=== PATIENT | male | born 1960 | race Hispanic/Latino ===

== ENCOUNTER 2019-12-22 14:30 | Emergency (ER) | payer SELFPAY ==
[2019-12-22 14:51] VITALS: BP 143/78
--- NOTE | 2019-12-22 15:04 | Emergency Department Report ---
ED Lower Extremity HPI - General Chief Complaint: Extremity Injury, Lower Stated Complaint: TOE INJURY Time Seen by Provider: 12/22/19 15:02 Source: patient Mode of arrival: Ambulatory Limitations: No Limitations - History of Present Illness Initial Comments: Patient is a 59-year-old male who comes to the ER after stubbing his toe on the nightstand. He states that it hurts so bad that he cannot walk. He has done nothing prior to arrival for the pain. He comes to the ER via private vehicle. He has no other injuries. -: Sudden Place: home Severity: mild Worsens With: weight bearing Context: direct blow - Related Data Allergies Allergy/AdvReac Type Severity Reaction Status Date / Time No Known Allergies Allergy Unverified 12/22/19 14:46 ED Review of Systems ROS: Stated complaint: TOE INJURY Other details as noted in HPI Comment: All other systems reviewed and negative ED Past Medical Hx - Past Medical History Previous Medical History?: No - Surgical History Past Surgical History?: Yes Additional Surgical History: neck surgery x 2. bilateral knee surgery - Social History Smoking Status: Never Smoker Substance Use Type: None ED Physical Exam - General Limitations: No Limitations General appearance: alert, in no apparent distress - Head Head exam: Present: atraumatic, normocephalic - Eye Eye exam: Present: normal appearance - ENT ENT exam: Present: mucous membranes moist - Neck Neck exam: Present: normal inspection - Respiratory Respiratory exam: Present: normal lung sounds bilaterally. Absent: respiratory distress - Cardiovascular Cardiovascular Exam: Present: regular rate, normal rhythm. Absent: systolic murmur, diastolic murmur, rubs, gallop - GI/Abdominal GI/Abdominal exam: Present: soft, normal bowel sounds - Rectal Rectal exam: Present: deferred - Extremities Exam Extremities exam: Present: normal inspection - Back Exam Back exam: Present: normal inspection - Neurological Exam Neurological exam: Present: alert, oriented X3 - Psychiatric Psychiatric exam: Present: normal affect, normal mood - Skin Skin exam: Present: warm, dry, intact, normal color. Absent: rash ED Course Vital Signs 12/22/19 14:46 Temperature 98.1 F Pulse Rate 61 Respiratory 16 Rate Blood Pressure 143/78 O2 Sat by Pulse 99 Oximetry ED Lower Extremity MDM - Radiology Data Radiology results: report reviewed, image reviewed interpreted by me: No fracture Negative for acute process - Medical Decision Making X-ray noted to be negative. Discussed with patient his x-ray. He came to the ER with crutches. I told him he could use these for short time for his pain. However, he should not use those for prolonged period of time so to cause secondary injury. Patient is neurovascularly intact. Patient being discharged home with Ortho/PCP follow-up. Vital Signs 12/22/19 14:46 Temperature 98.1 F Pulse Rate 61 Respiratory 16 Rate Blood Pressure 143/78 O2 Sat by Pulse 99 Oximetry - Differential Diagnosis Rule out fracture Critical care attestation.: If time is entered above; I have spent that time in minutes in the direct care of this critically ill patient, excluding procedure time. ED Disposition Clinical Impression: Foot pain, Bunion, Contusion, foot Disposition: DC-01 TO HOME OR SELFCARE Is pt being admited?: No Does the pt Need Aspirin: No Condition: Stable Instructions: Foot Contusion (ED) Additional Instructions: ICE REST ELEVATE CRUTCHES ONLY FOR COMFORT OVERUSE WILL CAUSE INJURY FOLLOW UP WITH DR LI IF PERSISTS REFERRAL BELOW MOTRIN OR TYLENOL FOR PAIN Referrals: VAN LI MD [Staff Physician] - 3-5 Days Time of Disposition: 15:40
--- NOTE | 2019-12-22 15:32 | XRay Report ---
Left foot 3 views INDICATION: Left foot pain following injury IMPRESSION: No fracture or subluxation of the left foot is identified. Small bunion identified along the medial aspect of the great toe metatarsal head. Signer Name: Andrew Cuellar MD Signed: 12/22/2019 3:27 PM Workstation Name: [id number]
[2019-12-22] MEDS ORDERED: IBUPROFEN 800 MG TAB PO ONE (15:41)
== END 2019-12-22 15:58 | disposition home or self-care (01) ==
LOC: ED 14:30
DX: S90.32XA Contusion of left foot, initial encounter (principal); M21.612 Bunion of left foot; Z98.890 Other specified postprocedural states; W18.49XA Other slipping, tripping and stumbling without falling, initial encounter; Y93.89 Activity, other specified; Y92.009 Unspecified place in unspecified non-institutional (private) residence as the place of occurrence of the external cause; Y99.8 Other external cause status
CPT/HCPCS: 99283